=== PATIENT | male | born 1945 | race Two or more races ===

== ENCOUNTER → 2024-10-08 10:48 | Outpatient (REF) | payer OTHER, SELFPAY | LOC: MRI 3T 10:48 | PROVIDERS: ATTENDING PHYSICIAN Urology; FAMILY PHYSICIAN Family Medicine; OTHER PHYSICIAN Radiology Diagnostic Radiology | DX: R97.20 Elevated prostate specific antigen [PSA] (principal) | CPT/HCPCS: 70030; 72197; A9575 ==